=== PATIENT | female | born 1945 | race Caucasian/White ===

== ENCOUNTER 2020-09-26 15:01 | Observation (INO) | payer MEDICARE, BC ==
[2020-09-26] MEDS ORDERED: Hydrocortisone Sod Succ/PF 100 mg/2 ml Vial ONE (15:45)
[2020-09-26] MEDS ORDERED: Aspirin 325 MG TAB ONE (15:46)
[2020-09-26 16:19] LABS: #Basophils 0.1 10x3/uL (0.0-0.2); #Eosinphils 0.3 10x3/uL (0.0-0.5); #Monocytes 1.2 10x3/uL (0.0-1.1); #Neutrophils 7.5 10x3/uL (1.5-8.4); %Basophils 0.8 % (0.0-2.0); %Eosinophils 2.7 % (0.0-6.0); %Lymphocytes 25.8 % (18.0-47.0); %Monocytes 9.8 % (0.0-10.0); %Neutrophils 60.3 % (40.0-75.0); Hemoglobin 16.4 g/dL (12.0-15.5); Mean Corpuscular HGB CONC 34.1 g/dL (32.0-36.0); Mean Corpuscular Hemoglobin 29.4 pg (27.0-33.0); Mean Corpuscular Volume 86.4 fl (81.6-98.3); Mean Platelet Volume 10.2 fl (7.4-10.4); Platelet Count 373 10x3/uL (150-450); RBC Distribution Width 11.9 % (11.5-14.5); Red Blood Cell (RBC) Count 5.57 10x6/uL (3.90-5.03); White Blood Cell (WBC) Count 12.4 10x3/uL (3.5-10.5)
[2020-09-26 16:47] LABS: ALT (SGPT) 13 U/L (8-55); AST (SGOT) 16 U/L (5-34); Albumin 3.8 g/dL (3.4-4.8); Alkaline Phosphatase 60 U/L (40-110); Anion Gap 16 mmol/L (10-20); BUN (Urea Nitrogen) 18 mg/dL (9.8-20.1); Bilirubin, Total 0.4 mg/dL (0.2-1.2); CK (CPK) 29 U/L (29-168); Calc. Creatinine Clearance 0 mL/min (70-130); Calcium 10.4 mg/dL (7.8-10.44); Carbon Dioxide 21 mmol/L (23-31); Globulin 2.8 g/dL (2.4-3.5); Glucose 112 mg/dL (83-110); Protein, Total 6.6 g/dL (5.8-8.1)
[2020-09-26 17:01] LABS: Chloride 104 mmol/L (98-107); Potassium 4.8 mmol/L (3.5-5.1); Sodium 136 mmol/L (136-145)
[2020-09-26 17:30] LABS: Bilirubin Neg (Negative); Blood, Urine Negative (Negative); Clarity Clear (Clear); Glucose, Urine (Dipstick) Normal (Negative); Ketone, Urine Negative (Negative); Leukocyte Negative (Negative); Nitrite Negative (Negative); Protein, Urine (Dipstick) Negative (Neg-Trace); Specific Gravity, Urine 1.015 (1.002-1.036); Urobilinogen Normal mg/dL (Less than 2)
[2020-09-26] MEDS ORDERED: Diltiazem 125 MG/25 ML ONE (18:54)
[2020-09-26] MEDS ORDERED: Enoxaparin Sodium 60 MG/0.6 ML SYRINGE ONE (18:54)
[2020-09-26] MEDS ORDERED: Acetaminophen 325 MG TAB PO PRN (20:02)
[2020-09-26] MEDS ORDERED: Calcium Carbonate 500 MG ChewTAB PO PRN (20:02)
[2020-09-26] MEDS ORDERED: Ondansetron PF 4 MG/2 ML Vial IVP PRN (20:02)
[2020-09-26] MEDS ORDERED: Zolpidem Tartrate 5 MG TAB PO PRN (20:02)
[2020-09-26] MEDS ORDERED: Guaifenesin DM 100-10/5 ML UDCUP PO PRN (20:02)
[2020-09-26] MEDS ORDERED: Lactated Ringer's 1,000 ML IV SCH (20:15)
[2020-09-26] MEDS: Metoprolol Tartrate 25 MG TAB PO SCH (21:58)
[2020-09-26] MEDS: Famotidine 20 MG TAB PO SCH (21:58)
[2020-09-26 23:05] VITALS: BMI 24.5
[2020-09-27] MEDS: Hydrocortisone Sod Succ/PF 100 mg/2 ml Vial IVP SCH ×2 (01:18→08:27)
[2020-09-27 06:34] LABS: #Monocytes 0.3 10x3/uL (0.0-1.1); #Neutrophils 12.1 10x3/uL (1.5-8.4); %Basophils 0.2 % (0.0-2.0); %Eosinophils 0.1 % (0.0-6.0); %Lymphocytes 14.2 % (18.0-47.0); %Monocytes 2.1 % (0.0-10.0); %Neutrophils 82.9 % (40.0-75.0); Hemoglobin 13.9 g/dL (12.0-15.5); Mean Corpuscular HGB CONC 33.2 g/dL (32.0-36.0); Mean Corpuscular Hemoglobin 29.4 pg (27.0-33.0); Mean Corpuscular Volume 88.8 fl (81.6-98.3); Mean Platelet Volume 10.3 fl (7.4-10.4); Platelet Count 296 10x3/uL (150-450); RBC Distribution Width 12.1 % (11.5-14.5); Red Blood Cell (RBC) Count 4.72 10x6/uL (3.90-5.03); White Blood Cell (WBC) Count 14.6 10x3/uL (3.5-10.5)
[2020-09-27 06:43] LABS: Anion Gap 15 mmol/L (10-20); BUN (Urea Nitrogen) 14 mg/dL (9.8-20.1); Calc. Creatinine Clearance 62 mL/min (70-130); Calcium 9.2 mg/dL (7.8-10.44); Carbon Dioxide 19 mmol/L (23-31); Chloride 111 mmol/L (98-107); Glucose 200 mg/dL (83-110); Potassium 4.1 mmol/L (3.5-5.1); Sodium 141 mmol/L (136-145)
[2020-09-27 08:27] VITALS: BP 108/60; TEMP 97.4
[2020-09-27] MEDS: Metoprolol Tartrate 25 MG TAB PO SCH (08:27)
[2020-09-27] MEDS: Famotidine 20 MG TAB PO SCH (08:27)
[2020-09-27] MEDS ORDERED: Aspirin 81 mg Enteric Coated Tablet PO SCH (09:00)
[2020-09-27] MEDS ORDERED: Enoxaparin Sodium 40 MG/0.4 ML SYRINGE SC SCH (09:00)
[2020-09-27 09:22] LABS: Free T4 (Free Thyroxine) 1.01 ng/dL (0.70-1.48); Thyroid Stimulating Hormone 0.0324 uIU/mL (0.35-4.94)
== END 2020-09-27 10:50 | disposition home or self-care (01) ==
LOC: CSHERS 15:01 → CSHTELE 20:55 → INTOOBSV 20:55
PROVIDERS: ADMIT Student in an Organized Health Care Education/Training Program; ATTEND Hospitalist
DX: E27.2 Addisonian crisis (principal); E86.0 Dehydration; I48.91 Unspecified atrial fibrillation; E03.9 Hypothyroidism, unspecified; N18.2 Chronic kidney disease, stage 2 (mild); D72.829 Elevated white blood cell count, unspecified
CPT/HCPCS: 71045; 80048; 80053; 81003; 82550; 83605; 84439; 84443; 84481; 84484; 85025; 93005; 93010; 96374; 96375; 96376; G0378; J1650; J1720; J7120

== ENCOUNTER 2021-06-04 19:59 | Inpatient (IN) | payer MEDICARE, BC ==
[2021-06-04] MEDS ORDERED: Hydrocortisone Sod Succ/PF 100 mg/2 ml Vial ONE (20:07)
[2021-06-04] MEDS ORDERED: Diltiazem 125 MG/25 ML ONE (20:07)
[2021-06-04 21:05] LABS: #Basophils 0.1 10x3/uL (0.0-0.2); #Eosinphils 0.3 10x3/uL (0.0-0.5); #Monocytes 1.2 10x3/uL (0.0-1.1); #Neutrophils 9.6 10x3/uL (1.5-8.4); %Basophils 0.6 % (0.0-2.0); %Eosinophils 2.1 % (0.0-6.0); %Monocytes 8.3 % (0.0-10.0); %Neutrophils 66.4 % (40.0-75.0); Hemoglobin 14.9 g/dL (12.0-15.5); Mean Corpuscular HGB CONC 34.3 g/dL (32.0-36.0); Mean Corpuscular Hemoglobin 29.7 pg (27.0-33.0); Mean Corpuscular Volume 86.6 fl (81.6-98.3); Mean Platelet Volume 10.1 fl (7.4-10.4); Platelet Count 300 10x3/uL (150-450); RBC Distribution Width 12.8 % (11.5-14.5); Red Blood Cell (RBC) Count 5.01 10x6/uL (3.90-5.03); White Blood Cell (WBC) Count 14.5 10x3/uL (3.5-10.5)
[2021-06-04 21:21] LABS: Digoxin 0.16 ng/mL (0.8-2.0)
[2021-06-04 21:21] LABS: ALT (SGPT) 63 U/L (8-55); AST (SGOT) 63 U/L (5-34); Albumin 3.5 g/dL (3.4-4.8); Alkaline Phosphatase 41 U/L (40-110); Anion Gap 13 mmol/L (10-20); BUN (Urea Nitrogen) 17 mg/dL (9.8-20.1); Bilirubin, Total 0.7 mg/dL (0.2-1.2); Calc. Creatinine Clearance 0 mL/min (70-130); Calcium 8.4 mg/dL (7.8-10.44); Carbon Dioxide 20 mmol/L (23-31); Chloride 106 mmol/L (98-107); Globulin 2.6 g/dL (2.4-3.5); Glucose 131 mg/dL (83-110); Potassium 3.5 mmol/L (3.5-5.1); Protein, Total 6.1 g/dL (5.8-8.1); Sodium 135 mmol/L (136-145)
[2021-06-04] MEDS ORDERED: Metoprolol Tartrate 5 MG/5 ML VIAL ONE (21:26)
[2021-06-04] MEDS ORDERED: Acetaminophen 325 MG TAB PO PRN (22:14)
[2021-06-04] MEDS ORDERED: Senokot S 8.6-50 MG TAB PO PRN (22:14)
[2021-06-04] MEDS ORDERED: Zolpidem Tartrate 5 MG TAB PO PRN (22:14)
[2021-06-04] MEDS ORDERED: Ondansetron PF 4 MG/2 ML Vial IVP PRN (22:14)
[2021-06-04] MEDS ORDERED: Calcium Carbonate 500 MG ChewTAB PO PRN (22:14)
[2021-06-04] MEDS ORDERED: Guaifenesin DM 100-10/5 ML UDCUP PO PRN (22:14)
[2021-06-04] MEDS ORDERED: Digoxin 0.125 MG TAB PO SCH (22:30)
[2021-06-04] MEDS ORDERED: Acetaminophen 325 MG TAB ONE (22:37)
[2021-06-04] MEDS ORDERED: Digoxin 0.5 MG/2 ML AMP ONE (22:50)
[2021-06-05] MEDS ORDERED: Enoxaparin Sodium 60 MG/0.6 ML SYRINGE SC SCH (00:01)
[2021-06-05] MEDS ORDERED: Potassium Chloride 20 MEQ TAB PO SCH (00:01)
[2021-06-05] MEDS ORDERED: Digoxin 0.5 MG/2 ML AMP SLOW IVP SCH (00:01)
[2021-06-05 00:05] VITALS: BMI 25.4
[2021-06-05] MEDS ORDERED: Sodium Chloride 0.9% 1,000 ML IV SCH (01:00)
[2021-06-05] MEDS ORDERED: Diltiazem 125 MG, Admixture Fee 1 EACH in Sodium Chloride 0.9% 100 ML IVPB SCH (01:00)
[2021-06-05 02:26] LABS: SARS-CoV-2 NAA Rapid Test Not Detected (NotDetected)
[2021-06-05 04:43] LABS: ALT (SGPT) 72 U/L (8-55); AST (SGOT) 53 U/L (5-34); Albumin 3.5 g/dL (3.4-4.8); Alkaline Phosphatase 45 U/L (40-110); Anion Gap 14 mmol/L (10-20); BUN (Urea Nitrogen) 15 mg/dL (9.8-20.1); Bilirubin, Direct 0.3 mg/dL (0.1-0.3); Bilirubin, Total 0.7 mg/dL (0.2-1.2); Calc. Creatinine Clearance 65 mL/min (70-130); Calcium 8.3 mg/dL (7.8-10.44); Carbon Dioxide 19 mmol/L (23-31); Chloride 109 mmol/L (98-107); Glucose 159 mg/dL (83-110); Magnesium 1.8 mg/dL (1.6-2.6); Potassium 4.5 mmol/L (3.5-5.1); Sodium 137 mmol/L (136-145)
[2021-06-05 04:46] LABS: #Monocytes 0.5 10x3/uL (0.0-1.1); #Neutrophils 8.9 10x3/uL (1.5-8.4); %Basophils 0.2 % (0.0-2.0); %Eosinophils 0.1 % (0.0-6.0); %Lymphocytes 20.7 % (18.0-47.0); %Monocytes 3.9 % (0.0-10.0); %Neutrophils 74.5 % (40.0-75.0); Hemoglobin 14.4 g/dL (12.0-15.5); Mean Corpuscular HGB CONC 33.9 g/dL (32.0-36.0); Mean Corpuscular Hemoglobin 29.9 pg (27.0-33.0); Mean Corpuscular Volume 88.4 fl (81.6-98.3); Mean Platelet Volume 10.7 fl (7.4-10.4); Platelet Count 285 10x3/uL (150-450); RBC Distribution Width 12.4 % (11.5-14.5); Red Blood Cell (RBC) Count 4.81 10x6/uL (3.90-5.03); White Blood Cell (WBC) Count 11.9 10x3/uL (3.5-10.5)
[2021-06-05 04:50] LABS: Free T4 (Free Thyroxine) 1.67 ng/dL (0.70-1.48)
[2021-06-05] MEDS ORDERED: Levothyroxine Sodium 100 MCG TAB PO SCH (06:00)
[2021-06-05] MEDS ORDERED: Levothyroxine Sodium 112 MCG TAB PO SCH (06:00)
[2021-06-05] MEDS ORDERED: Metoprolol Tartrate 25 MG TAB PO SCH (09:00)
[2021-06-05] MEDS ORDERED: Aspirin 81 mg Enteric Coated Tablet PO SCH (09:00)
[2021-06-05] MEDS ORDERED: Digoxin 0.125 MG TAB PO SCH (09:00)
[2021-06-05] MEDS ORDERED: Enoxaparin Sodium 40 MG/0.4 ML SYRINGE SC SCH ×2 (09:00→21:00)
[2021-06-05] MEDS ORDERED: Hydrocortisone Sod Succ/PF 100 mg/2 ml Vial IVP SCH (09:00)
[2021-06-05] MEDS ORDERED: Famotidine 20 MG TAB PO SCH (09:00)
[2021-06-05 12:32] LABS: Hemoglobin A1c 5.7 % (4.0-6.0)
[2021-06-05 16:03] VITALS: BP 131/58; TEMP 98.1
[2021-06-05] MEDS ORDERED: Amitriptyline HCl 25 MG TAB PO SCH (21:00)
[2021-06-06] MEDS ORDERED: Levothyroxine Sodium 75 MCG TAB PO SCH (06:00)
== END 2021-06-05 16:55 | disposition home or self-care (01) | DRG 309 ==
LOC: CSHERS 19:59 → UNDOADMOB 22:14 → CSHTELE 22:14 → INTOOBSV 06-05 00:02 → UNDOADMOB 06-05 00:02 → OBSVTOIN 06-05 00:02 → UNDODISIN 06-05 16:55
PROVIDERS: ADMIT Student in an Organized Health Care Education/Training Program; ATTEND Family Medicine
DX: I48.0 Paroxysmal atrial fibrillation (principal); E27.2 Addisonian crisis; E03.9 Hypothyroidism, unspecified; N18.2 Chronic kidney disease, stage 2 (mild); D72.829 Elevated white blood cell count, unspecified; G47.00 Insomnia, unspecified; Z20.822 Contact with and (suspected) exposure to COVID-19; Z88.0 Allergy status to penicillin; Z79.899 Other long term (current) drug therapy; Z90.49 Acquired absence of other specified parts of digestive tract; Z90.710 Acquired absence of both cervix and uterus
CPT/HCPCS: 36415; 71045; 71275; 80053; 80076; 80162; 83036; 83605; 83735; 83880; 84439; 84443; 84481; 84484; 85025; 85379; 87040; 93005; 93306; 96365; 96366; 96375; 96376; J1160; J1650; J1720; J3490; J7050

== ENCOUNTER 2021-10-14 16:16 | Observation (INO) | payer MEDICARE, BC ==
[2021-10-14 17:30] LABS: Hemoglobin 18.1 g/dL (12.0-15.5); Mean Corpuscular HGB CONC 34.4 g/dL (32.0-36.0); Mean Corpuscular Hemoglobin 29.8 pg (27.0-33.0); Mean Corpuscular Volume 86.7 fl (81.6-98.3); Platelet Count 334 10x3/uL (150-450); RBC Distribution Width 12.7 % (11.5-14.5); Red Blood Cell (RBC) Count 6.07 10x6/uL (3.90-5.03)
[2021-10-14] MEDS ORDERED: Ondansetron PF 4 MG/2 ML Vial ONE (17:35)
[2021-10-14] MEDS ORDERED: Hydrocortisone Sod Succ/PF 100 mg/2 ml Vial ONE (17:35)
[2021-10-14 17:36] LABS: ALT (SGPT) 18 U/L (8-55); AST (SGOT) 19 U/L (5-34); Albumin 4.4 g/dL (3.4-4.8); Alkaline Phosphatase 54 U/L (40-110); Anion Gap 18 mmol/L (10-20); BUN (Urea Nitrogen) 23 mg/dL (9.8-20.1); Bilirubin, Total 0.4 mg/dL (0.2-1.2); CK (CPK) 36 U/L (29-168); Calc. Creatinine Clearance 0 mL/min (70-130); Calcium 10.5 mg/dL (7.8-10.44); Carbon Dioxide 22 mmol/L (23-31); Chloride 98 mmol/L (98-107); Estimated GFR 54; Globulin 3.6 g/dL (2.4-3.5); Glucose 207 mg/dL (83-110); Lipase 30 U/L (8-78); Potassium 4.1 mmol/L (3.5-5.1); Sodium 134 mmol/L (136-145)
[2021-10-14 18:01] LABS: SARS-CoV-2 NAA Rapid Test Not Detected (NotDetected)
[2021-10-14 18:28] LABS: Bilirubin Neg (Negative); Blood, Urine 10 (Negative); Clarity Clear (Clear); Glucose, Urine (Dipstick) Normal (Negative); Ketone, Urine Negative (Negative); Leukocyte Negative (Negative); Nitrite Negative (Negative); Protein, Urine (Dipstick) Negative (Neg-Trace); Urobilinogen Normal mg/dL (Less than 2)
[2021-10-14 18:34] LABS: Bacteria/HPF 2+ HPF (None Seen); Mucous/LPF 1+ LPF (<2+); RBC/HPF 0-3 HPF (0-3); WBC/HPF 0-3 HPF (0-3)
[2021-10-14] MEDS ORDERED: cefTRIAXone\\ROCEPHIN 1 GM VIAL ONE (19:22)
[2021-10-14 19:23] LABS: Eosinophils 6 % (0-10); Monocytes 5 % (0-10)
[2021-10-14 19:24] LABS: Lymphocytes 30 % (21-51); Metamyelocyte 1 % (0-0); Neutrophil 50 % (42-75); Reactive Lymphocytes 3 % (0-10)
[2021-10-14 19:27] LABS: Band 4 % (5-11); Large Platelets SLIGHT; Platelet Morphology Comment Appears Adequate
[2021-10-14 19:28] LABS: MDiff Complete? YES
[2021-10-14 19:29] LABS: RBC Morphology Normal
[2021-10-14] MEDS ORDERED: Doxycycline 100 MG in Sodium Chloride 0.9% 100 ML IVPB SCH (19:30)
[2021-10-14] MEDS ORDERED: Guaifenesin DM 100-10/5 ML UDCUP PO PRN (19:48)
[2021-10-14] MEDS ORDERED: Senokot S 8.6-50 MG TAB PO PRN (19:48)
[2021-10-14] MEDS ORDERED: Acetaminophen 325 MG TAB PO PRN (19:48)
[2021-10-14] MEDS ORDERED: Calcium Carbonate 500 MG ChewTAB PO PRN (19:48)
[2021-10-14] MEDS ORDERED: Ondansetron PF 4 MG/2 ML Vial IVP PRN (19:48)
[2021-10-14 20:29] LABS: Lactic Acid 2.1 mmol/L (0.5-2.2)
[2021-10-14 20:38] VITALS: BMI 24.7
[2021-10-14] MEDS ORDERED: Benzonatate 100 MG CAP PO SCH (21:00)
[2021-10-14] MEDS ORDERED: Amitriptyline HCl 25 MG TAB PO SCH (21:00)
[2021-10-14] MEDS ORDERED: Metoprolol Tartrate 25 MG TAB PO SCH ×2 (21:00→21:30)
[2021-10-14] MEDS ORDERED: Famotidine/PF 20 mg/2ml Vial SLOW IVP SCH (21:00)
[2021-10-14] MEDS: Sodium Chloride 0.9% 1,000 ML IV SCH (21:31)
[2021-10-14] MEDS ORDERED: Zolpidem Tartrate 5 MG TAB PO PRN (22:29)
[2021-10-14] MEDS: Hydrocortisone Sod Succ/PF 100 mg/2 ml Vial IVP SCH (23:12)
[2021-10-15] MEDS: Sodium Chloride 0.9% 1,000 ML IV SCH (00:17)
[2021-10-15 05:17] LABS: #Monocytes 0.9 10x3/uL (0.0-1.1); #Neutrophils 8.6 10x3/uL (1.5-8.4); %Basophils 0.2 % (0.0-2.0); %Eosinophils 0.1 % (0.0-6.0); %Lymphocytes 21.5 % (18.0-47.0); %Monocytes 7.3 % (0.0-10.0); %Neutrophils 70.2 % (40.0-75.0); Hemoglobin 13.2 g/dL (12.0-15.5); Mean Corpuscular HGB CONC 34.1 g/dL (32.0-36.0); Mean Corpuscular Hemoglobin 29.6 pg (27.0-33.0); Mean Corpuscular Volume 86.8 fl (81.6-98.3); Mean Platelet Volume 10.2 fl (7.4-10.4); Platelet Count 265 10x3/uL (150-450); RBC Distribution Width 12.5 % (11.5-14.5); Red Blood Cell (RBC) Count 4.46 10x6/uL (3.90-5.03); White Blood Cell (WBC) Count 12.3 10x3/uL (3.5-10.5)
[2021-10-15] MEDS ORDERED: Levothyroxine Sodium 88 MCG TAB PO SCH (06:00)
[2021-10-15 06:11] LABS: Anion Gap 12 mmol/L (10-20); BUN (Urea Nitrogen) 13 mg/dL (9.8-20.1); Calc. Creatinine Clearance 67 mL/min (70-130); Calcium 8.1 mg/dL (7.8-10.44); Carbon Dioxide 19 mmol/L (23-31); Chloride 110 mmol/L (98-107); Estimated GFR 90; Glucose 104 mg/dL (83-110); Potassium 4.4 mmol/L (3.5-5.1); Sodium 137 mmol/L (136-145)
[2021-10-15] MEDS: Hydrocortisone Sod Succ/PF 100 mg/2 ml Vial IVP SCH (06:11)
[2021-10-15] MEDS ORDERED: Enoxaparin Sodium 40 MG/0.4 ML SYRINGE SC SCH (09:00)
[2021-10-15] MEDS ORDERED: Metoprolol Tartrate 25 MG TAB PO SCH (09:00)
[2021-10-15] MEDS ORDERED: Aspirin 81 mg Enteric Coated Tablet PO SCH (09:00)
[2021-10-15] MEDS ORDERED: Digoxin 0.125 MG TAB PO SCH (09:00)
[2021-10-15 11:35] VITALS: BP 116/57; TEMP 97.5
[2021-10-15 13:46] LABS: Hemoglobin A1c 5.9 % (4.0-6.0)
[2021-10-15] MEDS ORDERED: Famotidine/PF 20 mg/2ml Vial SLOW IVP SCH (21:00)
== END 2021-10-15 12:01 | disposition home or self-care (01) ==
LOC: CSHERS 16:16 → CSHTELE 20:23
PROVIDERS: ADMIT Student in an Organized Health Care Education/Training Program; ATTEND Internal Medicine
DX: E27.2 Addisonian crisis (principal); E03.9 Hypothyroidism, unspecified; E86.0 Dehydration; N18.2 Chronic kidney disease, stage 2 (mild); I48.0 Paroxysmal atrial fibrillation; Z20.822 Contact with and (suspected) exposure to COVID-19; Z79.82 Long term (current) use of aspirin; Z79.899 Other long term (current) drug therapy; Z88.0 Allergy status to penicillin; Z88.5 Allergy status to narcotic agent; R65.10 Systemic inflammatory response syndrome (SIRS) of non-infectious origin without acute organ dysfunction; R53.1 Weakness; R79.89 Other specified abnormal findings of blood chemistry
CPT/HCPCS: 71045; 80048; 82550; 83036; 83605; 83690; 84484 ×2; 85025; 87040; 87086; 87633; 87804 ×2; 93005; 96375; G0378 ×2; U0002; 36415; 80053; 81003; 81015; 84443; J0696; J1720; J2405; J3490; J7050; S0028

== ENCOUNTER 2022-09-11 03:51 | Emergency (ER) | payer MEDICARE, BC ==
[2022-09-11] MEDS ORDERED: Hydrocortisone Sod Succ/PF 100 mg/2 ml Vial ONE (04:16)
[2022-09-11 04:26] LABS: #Basophils 0.1 10x3/uL (0.0-0.2); #Eosinphils 0.3 10x3/uL (0.0-0.5); #Monocytes 1.2 10x3/uL (0.0-1.1); #Neutrophils 5.3 10x3/uL (1.5-8.4); %Basophils 1.1 % (0.0-2.0); %Eosinophils 2.3 % (0.0-6.0); %Lymphocytes 40.4 % (18.0-47.0); %Neutrophils 45.9 % (40.0-75.0); Hemoglobin 17.6 g/dL (12.0-15.5); Mean Corpuscular HGB CONC 34.6 g/dL (32.0-36.0); Mean Corpuscular Hemoglobin 30.4 pg (27.0-33.0); Mean Corpuscular Volume 88.1 fl (81.6-98.3); Mean Platelet Volume 10.5 fl (7.4-10.4); Platelet Count 331 10x3/uL (150-450); RBC Distribution Width 12.3 % (11.5-14.5); Red Blood Cell (RBC) Count 5.78 10x6/uL (3.90-5.03); White Blood Cell (WBC) Count 11.5 10x3/uL (3.5-10.5)
[2022-09-11 04:33] LABS: ALT (SGPT) 17 U/L (8-55); AST (SGOT) 24 U/L (5-34); Albumin 4.3 g/dL (3.4-4.8); Alkaline Phosphatase 48 U/L (40-110); Anion Gap 19 mmol/L (10-20); BUN (Urea Nitrogen) 19 mg/dL (9.8-20.1); Bilirubin, Total 0.3 mg/dL (0.2-1.2); Calc. Creatinine Clearance 0 mL/min (70-130); Calcium 9.7 mg/dL (7.8-10.44); Carbon Dioxide 19 mmol/L (23-31); Chloride 103 mmol/L (98-107); Estimated GFR 71; Globulin 3.3 g/dL (2.4-3.5); Glucose 127 mg/dL (83-110); Magnesium 1.6 mg/dL (1.6-2.6); Protein, Total 7.6 g/dL (5.8-8.1); Sodium 136 mmol/L (136-145)
== END 2022-09-11 05:50 | disposition home or self-care (01) ==
LOC: CSHERS 03:51
DX: E27.2 Addisonian crisis (principal); E03.9 Hypothyroidism, unspecified; I48.91 Unspecified atrial fibrillation
CPT/HCPCS: 80053; 83735; 84443; 84484; 85025; 93005; 96361; 96374; J1720

== ENCOUNTER 2023-02-04 15:16 | Inpatient (IN) | payer MEDICARE, BC ==
[2023-02-04] MEDS ORDERED: Hydrocortisone Sod Succ/PF 100 mg/2 ml Vial ONE (15:37)
[2023-02-04] MEDS ORDERED: dilTIAZem 125 MG/25 ML SDV ONE (15:56)
[2023-02-04] MEDS ORDERED: Acetaminophen 325 MG Suppository ONE (15:56)
[2023-02-04] MEDS ORDERED: dilTIAZem 25 MG/5 ML VIAL ONE (15:56)
[2023-02-04 16:08] LABS: Actual Bicarbonate (HCO3v) 23.8 mEq/L (22-28); Analyzer IN Cardio CS ER; Base Excess -0.7 mEq/L (-2 - +2); Calcium, Ionized (venous) 0.97 mmol/L (1.16-1.32); Chloride (VBG) 100 mmol/L (98-106); Hematocrit-VBG 48 % (36.0-47.0); Hemoglobin (Hb) 16.3 g/dL (11.7-16.1); Potassium (VBG) 3.07 mmol/L (3.70-5.30); Puncture Site Other Site; RapidComm Collect By CBN; Sodium 136 mmol/L (133-146); pH (venous) 7.403 (7.32-7.43)
[2023-02-04 16:38] LABS: #Basophils 0.1 10x3/uL (0.0-0.2); #Eosinphils 0.1 10x3/uL (0.0-0.5); #Monocytes 2.2 10x3/uL (0.0-1.1); %Basophils 0.5 % (0.0-2.0); %Eosinophils 0.6 % (0.0-6.0); %Lymphocytes 31.2 % (18.0-47.0); %Monocytes 12.9 % (0.0-10.0); %Neutrophils 54.1 % (40.0-75.0); Hematocrit 46.4 % (34.9-44.5); Hemoglobin 15.4 g/dL (12.0-15.5); Mean Corpuscular HGB CONC 33.2 g/dL (32.0-36.0); Mean Corpuscular Hemoglobin 30.4 pg (27.0-33.0); Mean Corpuscular Volume 91.7 fl (81.6-98.3); Mean Platelet Volume 10.8 fl (7.4-10.4); Platelet Count 251 10x3/uL (150-450); RBC Distribution Width 12.5 % (11.5-14.5); Red Blood Cell (RBC) Count 5.06 10x6/uL (3.90-5.03); White Blood Cell (WBC) Count 16.7 10x3/uL (3.5-10.5)
[2023-02-04 16:46] LABS: ALT (SGPT) 42 U/L (8-55); AST (SGOT) 62 U/L (5-34); Albumin 3.9 g/dL (3.4-4.8); Alkaline Phosphatase 48 U/L (40-110); Anion Gap 16 mmol/L (10-20); BUN (Urea Nitrogen) 13 mg/dL (9.8-20.1); Bilirubin, Total 0.5 mg/dL (0.2-1.2); Calc. Creatinine Clearance 0 mL/min (70-130); Calcium 8.7 mg/dL (7.8-10.44); Carbon Dioxide 19 mmol/L (23-31); Chloride 105 mmol/L (98-107); Estimated GFR 81; Glucose 86 mg/dL (83-110); Magnesium 1.5 mg/dL (1.6-2.6); Potassium 3.2 mmol/L (3.5-5.1); Protein, Total 6.9 g/dL (5.8-8.1); Sodium 137 mmol/L (136-145)
[2023-02-04] MEDS ORDERED: Magnesium 2 GM/50 ML BAG (IN WATER) ONE (17:08)
[2023-02-04] MEDS ORDERED: Cefepime 2 GM VIAL ONE (17:08)
[2023-02-04] MEDS ORDERED: Potassium Chloride 20 MEQ (100 mL) BAG ONE (17:09)
[2023-02-04 17:43] LABS: SARS-CoV-2 NAA Rapid Test DETECTED (NotDetected)
[2023-02-04] MEDS ORDERED: dilTIAZem 125 MG in Sodium Chloride 0.9% 100 ML IVPB SCH ×2 (19:00→21:15)
[2023-02-04 19:17] LABS: Lactic Acid 1.3 mmol/L (0.5-2.2)
[2023-02-04] MEDS ORDERED: Acetaminophen 325 MG TAB PO PRN (19:21)
[2023-02-04] MEDS ORDERED: Acetaminophen 650 MG Suppository PR PRN ×2 (19:21)
[2023-02-04] MEDS ORDERED: Bisacodyl 5 MG TAB PO PRN (19:21)
[2023-02-04] MEDS ORDERED: Ondansetron ODT 4 MG TAB PO PRN (19:21)
[2023-02-04] MEDS ORDERED: Ondansetron PF 4 MG/2 ML Vial IVP PRN (19:21)
[2023-02-04] MEDS ORDERED: Senokot S 8.6-50 MG TAB PO PRN (19:21)
[2023-02-04] MEDS ORDERED: Electrolyte Replacement Protocol 1 EACH FS SCH (19:30)
[2023-02-04] MEDS ORDERED: Ventolin HFA Inhaler 60 PUFF INHALER INH PRN (19:45)
[2023-02-04] MEDS: Sodium Chloride 0.9% 1,000 ML IV SCH (19:53)
[2023-02-04] MEDS: Hydrocortisone Sod Succ/PF 100 mg/2 ml Vial IVP SCH (20:05)
[2023-02-04] MEDS: Famotidine 20 MG TAB PO SCH (20:05)
[2023-02-04] MEDS: Famotidine/PF 20 mg/2ml Vial SLOW IVP SCH (20:05)
[2023-02-04] MEDS: Potassium Chloride 20 MEQ in Premix 1 BAG IVPB SCH ×2 (20:05→22:47)
[2023-02-04 20:06] LABS: ALT (SGPT) 42 U/L (8-55); AST (SGOT) 68 U/L (5-34); Albumin 3.9 g/dL (3.4-4.8); Alkaline Phosphatase 45 U/L (40-110); Bilirubin, Direct 0.2 mg/dL (0.1-0.3); Bilirubin, Total 0.5 mg/dL (0.2-1.2); CRP (Inflammatory) 3.05 mg/dL (= or < 0.5); Phosphorus 2.2 mg/dL (2.3-4.7); Protein, Total 6.5 g/dL (5.8-8.1)
[2023-02-04] MEDS ORDERED: REMDESIVIR 200 MG in Sodium Chloride 0.9% 250 ML 210 ML IV SCH (21:00)
[2023-02-04] MEDS: Metoprolol Tartrate 25 MG TAB PO SCH (21:56)
[2023-02-04] MEDS ORDERED: Potassium Chloride 20 MEQ in Premix 1 BAG IVPB SCH (22:00)
[2023-02-04 22:54] LABS: Magnesium 1.7 mg/dL (1.6-2.6); Phosphorus 2.7 mg/dL (2.3-4.7)
[2023-02-05 00:11] LABS: Legionella Urinary Ag Negative (Negative); Strep pneumo Urine Ag NEGATIVE (NEGATIVE)
[2023-02-05 00:30] LABS: Digoxin 0.57 ng/mL (0.8-2.0)
[2023-02-05] MEDS: Hydrocortisone Sod Succ/PF 100 mg/2 ml Vial IVP SCH ×4 (02:18→20:10)
[2023-02-05] MEDS: Sodium Chloride 0.9% 1,000 ML IV SCH (02:18)
[2023-02-05 03:36] LABS: #Basophils 0.1 10x3/uL (0.0-0.2); #Neutrophils 10.4 10x3/uL (1.5-8.4); %Basophils 0.4 % (0.0-2.0); %Eosinophils 0.1 % (0.0-6.0); %Lymphocytes 20.6 % (18.0-47.0); %Monocytes 12.9 % (0.0-10.0); %Neutrophils 65.6 % (40.0-75.0); Hematocrit 35.3 % (34.9-44.5); Hemoglobin 11.7 g/dL (12.0-15.5); Mean Corpuscular HGB CONC 33.1 g/dL (32.0-36.0); Mean Corpuscular Hemoglobin 29.8 pg (27.0-33.0); Mean Corpuscular Volume 89.8 fl (81.6-98.3); Mean Platelet Volume 11.1 fl (7.4-10.4); Platelet Count 208 10x3/uL (150-450); RBC Distribution Width 12.9 % (11.5-14.5); Red Blood Cell (RBC) Count 3.93 10x6/uL (3.90-5.03); White Blood Cell (WBC) Count 15.9 10x3/uL (3.5-10.5)
[2023-02-05 03:49] LABS: ALT (SGPT) 32 U/L (8-55); AST (SGOT) 42 U/L (5-34); Albumin 3.1 g/dL (3.4-4.8); Alkaline Phosphatase 33 U/L (40-110); Anion Gap 13 mmol/L (10-20); BUN (Urea Nitrogen) 12 mg/dL (9.8-20.1); Bilirubin, Direct 0.1 mg/dL (0.1-0.3); Bilirubin, Total 0.3 mg/dL (0.2-1.2); Calc. Creatinine Clearance 68 mL/min (70-130); Calcium 7.4 mg/dL (7.8-10.44); Carbon Dioxide 20 mmol/L (23-31); Chloride 107 mmol/L (98-107); Estimated GFR 83; Globulin 2.1 g/dL (2.4-3.5); Glucose 116 mg/dL (83-110); Potassium 3.8 mmol/L (3.5-5.1); Protein, Total 5.2 g/dL (5.8-8.1); Sodium 136 mmol/L (136-145)
[2023-02-05] MEDS: Cefepime 1 GM in Sodium Chloride 0.9% 100 ML IVPB SCH ×2 (04:05→17:01)
[2023-02-05 04:09] LABS: Ferritin 411.7 ng/mL (10-291); Free T4 (Free Thyroxine) 1.3 ng/dL (0.70-1.48)
[2023-02-05] MEDS: Acetaminophen 325 MG TAB PO PRN (07:25)
[2023-02-05] MEDS: Digoxin 0.125 MG TAB PO SCH (07:26)
[2023-02-05] MEDS: Metoprolol Tartrate 25 MG TAB PO SCH ×2 (07:26→20:10)
[2023-02-05] MEDS ORDERED: Magnesium 2 GM/50 ML(in water) 2 GM in Premix 1 BAG IVPB SCH (08:00)
[2023-02-05] MEDS ORDERED: Magnesium Sulfate 4 GM in Sodium Chloride 0.9% 250 ML 250 ML IVPB SCH (08:15)
[2023-02-05] MEDS ORDERED: Digoxin 0.5 MG/2 ML AMP SLOW IVP SCH (08:15)
[2023-02-05] MEDS: Magnesium 2 GM/50 ML(in water) 2 GM in Premix 1 BAG IVPB SCH ×2 (08:31→09:20)
[2023-02-05] MEDS: Famotidine/PF 20 mg/2ml Vial SLOW IVP SCH ×2 (08:53→20:10)
[2023-02-05] MEDS: Famotidine 20 MG TAB PO SCH ×2 (08:53→20:10)
[2023-02-05] MEDS: Zinc Sulfate 220 MG CAP PO SCH (08:53)
[2023-02-05] MEDS: Ascorbic Acid 500 mg Chewable Tablet PO SCH (08:53)
[2023-02-05] MEDS ORDERED: Enoxaparin 40 MG (0.4 mL) SYRINGE SC SCH (09:00)
[2023-02-05] MEDS ORDERED: Dexamethasone 10 MG/ML VIAL SLOW IVP SCH (09:00)
[2023-02-05] MEDS: Apixaban 5 MG TAB PO SCH ×2 (09:20→20:10)
[2023-02-05] MEDS ORDERED: Amiodarone 450 MG in Dextrose 5% in Water 250 ML IVPB SCH (09:45)
[2023-02-05] MEDS ORDERED: Amiodarone In Dextrose 100 ML IVPB SCH (10:00)
[2023-02-05] MEDS: Amiodarone In Dextrose 200 ML IVPB SCH ×2 (10:17→15:15)
[2023-02-05] MEDS: Cholecalciferol (Vitamin D3) 400 UNITS TAB PO SCH (11:03)
[2023-02-05] MEDS: REMDESIVIR 100 MG in Sodium Chloride 0.9% 250 ML 230 ML IV SCH (20:10)
[2023-02-06] MEDS: Amiodarone In Dextrose 200 ML IVPB SCH (01:30)
[2023-02-06] MEDS: Hydrocortisone Sod Succ/PF 100 mg/2 ml Vial IVP SCH ×4 (03:14→20:27)
[2023-02-06 04:00] LABS: ALT (SGPT) 49 U/L (8-55); AST (SGOT) 67 U/L (5-34); Albumin 3.5 g/dL (3.4-4.8); Alkaline Phosphatase 38 U/L (40-110); Anion Gap 16 mmol/L (10-20); BUN (Urea Nitrogen) 11 mg/dL (9.8-20.1); Bilirubin, Direct 0.1 mg/dL (0.1-0.3); Bilirubin, Total 0.3 mg/dL (0.2-1.2); Calc. Creatinine Clearance 72 mL/min (70-130); Calcium 7.7 mg/dL (7.8-10.44); Carbon Dioxide 18 mmol/L (23-31); Chloride 110 mmol/L (98-107); Estimated GFR 89; Globulin 2.7 g/dL (2.4-3.5); Glucose 135 mg/dL (83-110); Magnesium 2.5 mg/dL (1.6-2.6); Potassium 3.5 mmol/L (3.5-5.1); Protein, Total 6.2 g/dL (5.8-8.1); Sodium 140 mmol/L (136-145)
[2023-02-06] MEDS: Cefepime 1 GM in Sodium Chloride 0.9% 100 ML IVPB SCH ×2 (04:02→16:39)
[2023-02-06] MEDS: Ascorbic Acid 500 mg Chewable Tablet PO SCH (07:59)
[2023-02-06] MEDS ORDERED: Potassium Chloride 20 MEQ TAB PO SCH (08:00)
[2023-02-06] MEDS: Metoprolol Tartrate 25 MG TAB PO SCH ×2 (08:01→20:28)
[2023-02-06] MEDS: Digoxin 0.125 MG TAB PO SCH (08:01)
[2023-02-06] MEDS: Apixaban 5 MG TAB PO SCH ×2 (08:01→20:28)
[2023-02-06] MEDS: Famotidine 20 MG TAB PO SCH ×2 (08:01→20:28)
[2023-02-06] MEDS: Cholecalciferol (Vitamin D3) 400 UNITS TAB PO SCH (08:02)
[2023-02-06] MEDS: Zinc Sulfate 220 MG CAP PO SCH (08:02)
[2023-02-06] MEDS: Famotidine/PF 20 mg/2ml Vial SLOW IVP SCH ×2 (09:00→20:26)
[2023-02-06] MEDS: Acetaminophen 325 MG TAB PO PRN ×2 (16:39→20:40)
[2023-02-06] MEDS: REMDESIVIR 100 MG in Sodium Chloride 0.9% 250 ML 230 ML IV SCH (20:26)
[2023-02-07] MEDS: Benzonatate 100 MG CAP PO PRN ×2 (01:03→10:27)
[2023-02-07] MEDS: Hydrocortisone Sod Succ/PF 100 mg/2 ml Vial IVP SCH ×3 (02:33→20:50)
[2023-02-07] MEDS: Acetaminophen 325 MG TAB PO PRN ×3 (02:33→18:26)
[2023-02-07] MEDS: Cefepime 1 GM in Sodium Chloride 0.9% 100 ML IVPB SCH (04:00)
[2023-02-07 04:07] LABS: ALT (SGPT) 73 U/L (8-55); AST (SGOT) 81 U/L (5-34); Albumin 3.3 g/dL (3.4-4.8); Alkaline Phosphatase 42 U/L (40-110); Anion Gap 13 mmol/L (10-20); BUN (Urea Nitrogen) 14 mg/dL (9.8-20.1); Bilirubin, Direct 0.2 mg/dL (0.1-0.3); Bilirubin, Total 0.5 mg/dL (0.2-1.2); Calc. Creatinine Clearance 76 mL/min (70-130); Calcium 8.1 mg/dL (7.8-10.44); Carbon Dioxide 20 mmol/L (23-31); Chloride 113 mmol/L (98-107); Estimated GFR 90; Globulin 2.3 g/dL (2.4-3.5); Glucose 166 mg/dL (83-110); Potassium 3.9 mmol/L (3.5-5.1); Protein, Total 5.6 g/dL (5.8-8.1); Sodium 142 mmol/L (136-145)
[2023-02-07] MEDS: Ascorbic Acid 500 mg Chewable Tablet PO SCH (08:23)
[2023-02-07] MEDS: Digoxin 0.125 MG TAB PO SCH (08:23)
[2023-02-07] MEDS: Famotidine 20 MG TAB PO SCH ×2 (08:23→20:12)
[2023-02-07] MEDS: Apixaban 5 MG TAB PO SCH ×2 (08:23→20:11)
[2023-02-07] MEDS: Amiodarone 200 MG TAB PO SCH (08:24)
[2023-02-07] MEDS: Metoprolol Tartrate 25 MG TAB PO SCH ×2 (08:24→20:11)
[2023-02-07] MEDS: Zinc Sulfate 220 MG CAP PO SCH (08:24)
[2023-02-07] MEDS: Cholecalciferol (Vitamin D3) 400 UNITS TAB PO SCH (08:32)
[2023-02-07] MEDS: Famotidine/PF 20 mg/2ml Vial SLOW IVP SCH ×2 (12:45→20:50)
[2023-02-07] MEDS ORDERED: Loperamide HCl 2 MG CAP PO PRN (13:39)
[2023-02-07] MEDS ORDERED: Losartan 25 MG TAB PO SCH (13:45)
[2023-02-07] MEDS ORDERED: Amlodipine 10 MG TAB PO SCH (14:15)
[2023-02-07] MEDS ORDERED: Metoprolol Tartrate 5 MG (5 mL) VIAL IVP PRN (20:46)
[2023-02-07] MEDS: REMDESIVIR 100 MG in Sodium Chloride 0.9% 250 ML 230 ML IV SCH (20:52)
[2023-02-08] MEDS ORDERED: dilTIAZem 125 MG in Sodium Chloride 0.9% 100 ML IVPB SCH (01:00)
[2023-02-08 06:56] LABS: #Monocytes 1.1 10x3/uL (0.0-1.1); #Neutrophils 10.1 10x3/uL (1.5-8.4); %Basophils 0.2 % (0.0-2.0); %Eosinophils 0.1 % (0.0-6.0); %Lymphocytes 18.3 % (18.0-47.0); %Monocytes 8.1 % (0.0-10.0); %Neutrophils 72.4 % (40.0-75.0); Hematocrit 35.2 % (34.9-44.5); Hemoglobin 11.9 g/dL (12.0-15.5); Mean Corpuscular HGB CONC 33.8 g/dL (32.0-36.0); Mean Corpuscular Volume 88.7 fl (81.6-98.3); Platelet Count 225 10x3/uL (150-450); RBC Distribution Width 13.3 % (11.5-14.5); Red Blood Cell (RBC) Count 3.97 10x6/uL (3.90-5.03)
[2023-02-08 07:07] LABS: ALT (SGPT) 59 U/L (8-55); AST (SGOT) 38 U/L (5-34); Alkaline Phosphatase 40 U/L (40-110); Anion Gap 11 mmol/L (10-20); BUN (Urea Nitrogen) 10 mg/dL (9.8-20.1); Bilirubin, Direct 0.3 mg/dL (0.1-0.3); Bilirubin, Total 0.7 mg/dL (0.2-1.2); Calc. Creatinine Clearance 94 mL/min (70-130); Carbon Dioxide 25 mmol/L (23-31); Chloride 108 mmol/L (98-107); Estimated GFR 94; Globulin 2.3 g/dL (2.4-3.5); Glucose 110 mg/dL (83-110); Potassium 2.9 mmol/L (3.5-5.1); Protein, Total 5.3 g/dL (5.8-8.1); Sodium 141 mmol/L (136-145)
[2023-02-08 08:21] LABS: Magnesium 1.8 mg/dL (1.6-2.6)
[2023-02-08] MEDS ORDERED: Amlodipine 10 MG TAB PO SCH (09:00)
[2023-02-08] MEDS: Saccharomyces boulardii 250 MG CAP PO SCH (09:40)
[2023-02-08] MEDS: Cholecalciferol (Vitamin D3) 400 UNITS TAB PO SCH (09:40)
[2023-02-08] MEDS: Ascorbic Acid 500 mg Chewable Tablet PO SCH (09:41)
[2023-02-08] MEDS: Potassium Chloride 20 MEQ TAB PO SCH ×3 (09:41→18:02)
[2023-02-08] MEDS: Losartan 25 MG TAB PO SCH (09:41)
[2023-02-08] MEDS: Amiodarone 200 MG TAB PO SCH ×2 (09:41→21:15)
[2023-02-08] MEDS: Metoprolol Tartrate 25 MG TAB PO SCH (09:41)
[2023-02-08] MEDS: Apixaban 5 MG TAB PO SCH ×2 (09:41→21:15)
[2023-02-08] MEDS: Famotidine 20 MG TAB PO SCH ×2 (09:42→21:15)
[2023-02-08] MEDS: Famotidine/PF 20 mg/2ml Vial SLOW IVP SCH (09:42)
[2023-02-08] MEDS: Hydrocortisone Sod Succ/PF 100 mg/2 ml Vial IVP SCH (09:47)
[2023-02-08] MEDS: Benzonatate 100 MG CAP PO PRN ×3 (09:47→21:15)
[2023-02-08] MEDS: Zinc Sulfate 220 MG CAP PO SCH (09:48)
[2023-02-08] MEDS ORDERED: Magnesium 2 GM/50 ML BAG (IN WATER) ONE (11:26)
[2023-02-08] MEDS ORDERED: Metoprolol Tartrate 25 MG TAB PO SCH (12:00)
[2023-02-08] MEDS ORDERED: Magnesium 2 GM/50 ML(in water) 2 GM in Premix 1 BAG IVPB SCH (12:00)
[2023-02-08] MEDS ORDERED: Digoxin 0.125 MG TAB PO SCH (14:45)
[2023-02-08 14:47] LABS: Potassium 3.2 mmol/L (3.5-5.1)
[2023-02-08] MEDS ORDERED: Famotidine/PF 20 mg/2ml Vial SLOW IVP PRN (16:15)
[2023-02-08] MEDS: Acetaminophen 325 MG TAB PO PRN (18:02)
[2023-02-08] MEDS: Metoprolol Tartrate 50 MG TAB PO SCH (21:15)
[2023-02-08] MEDS: REMDESIVIR 100 MG in Sodium Chloride 0.9% 250 ML 230 ML IV SCH (21:16)
[2023-02-09] MEDS: Benzonatate 100 MG CAP PO PRN ×3 (02:15→19:00)
[2023-02-09 05:00] LABS: #Basophils 0.1 10x3/uL (0.0-0.2); #Eosinphils 0.1 10x3/uL (0.0-0.5); #Monocytes 1.1 10x3/uL (0.0-1.1); #Neutrophils 6.6 10x3/uL (1.5-8.4); %Basophils 0.4 % (0.0-2.0); %Eosinophils 0.9 % (0.0-6.0); %Lymphocytes 31.4 % (18.0-47.0); %Monocytes 9.1 % (0.0-10.0); %Neutrophils 56.5 % (40.0-75.0); Hematocrit 35.8 % (34.9-44.5); Hemoglobin 12.3 g/dL (12.0-15.5); Mean Corpuscular HGB CONC 34.4 g/dL (32.0-36.0); Mean Corpuscular Hemoglobin 31.1 pg (27.0-33.0); Mean Corpuscular Volume 90.4 fl (81.6-98.3); Mean Platelet Volume 10.8 fl (7.4-10.4); Platelet Count 253 10x3/uL (150-450); RBC Distribution Width 13.1 % (11.5-14.5); Red Blood Cell (RBC) Count 3.96 10x6/uL (3.90-5.03); White Blood Cell (WBC) Count 11.6 10x3/uL (3.5-10.5)
[2023-02-09 05:26] LABS: ALT (SGPT) 50 U/L (8-55); AST (SGOT) 30 U/L (5-34); Albumin 2.9 g/dL (3.4-4.8); Alkaline Phosphatase 39 U/L (40-110); Anion Gap 11 mmol/L (10-20); BUN (Urea Nitrogen) 17 mg/dL (9.8-20.1); Bilirubin, Total 0.5 mg/dL (0.2-1.2); Calc. Creatinine Clearance 83 mL/min (70-130); Calcium 7.9 mg/dL (7.8-10.44); Carbon Dioxide 24 mmol/L (23-31); Chloride 111 mmol/L (98-107); Estimated GFR 91; Globulin 2.2 g/dL (2.4-3.5); Glucose 104 mg/dL (83-110); Magnesium 2.1 mg/dL (1.6-2.6); Potassium 3.5 mmol/L (3.5-5.1); Protein, Total 5.1 g/dL (5.8-8.1); Sodium 142 mmol/L (136-145)
[2023-02-09] MEDS ORDERED: Potassium Chloride 20 MEQ TAB PO SCH (08:00)
[2023-02-09] MEDS: dilTIAZem CD 120 MG CAP PO SCH (09:14)
[2023-02-09] MEDS: Apixaban 5 MG TAB PO SCH ×2 (09:14→22:07)
[2023-02-09] MEDS: Losartan 25 MG TAB PO SCH (09:14)
[2023-02-09] MEDS: Amiodarone 200 MG TAB PO SCH ×2 (09:14→22:08)
[2023-02-09] MEDS: Digoxin 0.125 MG TAB PO SCH (09:15)
[2023-02-09] MEDS: Ascorbic Acid 500 mg Chewable Tablet PO SCH (09:15)
[2023-02-09] MEDS: Metoprolol Tartrate 50 MG TAB PO SCH ×2 (09:15→22:08)
[2023-02-09] MEDS: Zinc Sulfate 220 MG CAP PO SCH (09:15)
[2023-02-09] MEDS: Saccharomyces boulardii 250 MG CAP PO SCH (09:16)
[2023-02-09] MEDS: Cholecalciferol (Vitamin D3) 400 UNITS TAB PO SCH (09:16)
[2023-02-09] MEDS: Famotidine 20 MG TAB PO SCH ×2 (09:16→22:07)
[2023-02-09] MEDS: Hydrocortisone Sod Succ/PF 100 mg/2 ml Vial IVP SCH (09:17)
[2023-02-09] MEDS: Magnesium Oxide 400 MG TAB PO SCH (09:21)
[2023-02-09 09:43] VITALS: BMI 25.0
[2023-02-09] MEDS: Acetaminophen 325 MG TAB PO PRN (19:00)
[2023-02-10] MEDS: Benzonatate 100 MG CAP PO PRN (04:12)
[2023-02-10] MEDS: Acetaminophen 325 MG TAB PO PRN (04:12)
[2023-02-10 06:23] LABS: #Basophils 0.1 10x3/uL (0.0-0.2); #Eosinphils 0.3 10x3/uL (0.0-0.5); #Monocytes 1.1 10x3/uL (0.0-1.1); #Neutrophils 5.8 10x3/uL (1.5-8.4); %Basophils 0.5 % (0.0-2.0); %Eosinophils 2.9 % (0.0-6.0); %Lymphocytes 32.1 % (18.0-47.0); %Monocytes 9.7 % (0.0-10.0); %Neutrophils 52.9 % (40.0-75.0); Hematocrit 36.8 % (34.9-44.5); Hemoglobin 12.4 g/dL (12.0-15.5); Mean Corpuscular HGB CONC 33.7 g/dL (32.0-36.0); Mean Corpuscular Hemoglobin 30.5 pg (27.0-33.0); Mean Corpuscular Volume 90.4 fl (81.6-98.3); Mean Platelet Volume 10.9 fl (7.4-10.4); Platelet Count 299 10x3/uL (150-450); RBC Distribution Width 13.1 % (11.5-14.5); Red Blood Cell (RBC) Count 4.07 10x6/uL (3.90-5.03); White Blood Cell (WBC) Count 11.1 10x3/uL (3.5-10.5)
[2023-02-10 06:39] LABS: ALT (SGPT) 37 U/L (8-55); AST (SGOT) 21 U/L (5-34); Albumin 2.9 g/dL (3.4-4.8); Alkaline Phosphatase 35 U/L (40-110); Anion Gap 12 mmol/L (10-20); BUN (Urea Nitrogen) 16 mg/dL (9.8-20.1); Bilirubin, Total 0.3 mg/dL (0.2-1.2); Calc. Creatinine Clearance 91 mL/min (70-130); Calcium 8.1 mg/dL (7.8-10.44); Carbon Dioxide 24 mmol/L (23-31); Chloride 108 mmol/L (98-107); Estimated GFR 93; Globulin 2.4 g/dL (2.4-3.5); Glucose 87 mg/dL (83-110); Potassium 3.5 mmol/L (3.5-5.1); Protein, Total 5.3 g/dL (5.8-8.1); Sodium 140 mmol/L (136-145)
[2023-02-10] MEDS ORDERED: Potassium Chloride 20 MEQ TAB PO SCH ×2 (07:00→09:00)
[2023-02-10] MEDS ORDERED: Losartan 50 MG TAB PO SCH (09:00)
[2023-02-10] MEDS: Apixaban 5 MG TAB PO SCH (09:37)
[2023-02-10] MEDS: Zinc Sulfate 220 MG CAP PO SCH (09:37)
[2023-02-10] MEDS: dilTIAZem CD 120 MG CAP PO SCH (09:37)
[2023-02-10] MEDS: Ascorbic Acid 500 mg Chewable Tablet PO SCH (09:37)
[2023-02-10] MEDS: Metoprolol Tartrate 50 MG TAB PO SCH (09:37)
[2023-02-10] MEDS: Cholecalciferol (Vitamin D3) 400 UNITS TAB PO SCH (09:37)
[2023-02-10] MEDS: Hydrocortisone Sod Succ/PF 100 mg/2 ml Vial IVP SCH (09:37)
[2023-02-10] MEDS: Saccharomyces boulardii 250 MG CAP PO SCH (09:37)
[2023-02-10] MEDS: Amiodarone 200 MG TAB PO SCH (09:37)
[2023-02-10] MEDS: Digoxin 0.125 MG TAB PO SCH (09:37)
[2023-02-10] MEDS: Magnesium Oxide 400 MG TAB PO SCH (09:37)
[2023-02-10] MEDS: Famotidine 20 MG TAB PO SCH (09:38)
[2023-02-10 13:15] VITALS: BP 147/78; TEMP 98.9
== END 2023-02-10 12:55 | disposition home or self-care (01) | DRG 177 ==
LOC: CSHERS 15:16 → CSHICU 15:56 → CSHTELE 02-07 15:47
PROVIDERS: ADMIT Emergency Medicine; ATTEND Family Medicine
PROC: XW033E5 Introduction of Remdesivir Anti-infective into Peripheral Vein, Percutaneous Approach, New Technology Group 5 (ICD-10-PCS; principal; 2023-02-04)
PROC: 8E0ZXY6 Isolation (ICD-10-PCS; 2023-02-04)
PROC: 3E0333Z Introduction of Anti-inflammatory into Peripheral Vein, Percutaneous Approach (ICD-10-PCS; 2023-02-05)
DX: U07.1 COVID-19 (principal); J12.82 Pneumonia due to coronavirus disease 2019; J96.01 Acute respiratory failure with hypoxia; E27.1 Primary adrenocortical insufficiency; I47.10 Supraventricular tachycardia, unspecified; I48.19 Other persistent atrial fibrillation; E87.6 Hypokalemia; E83.42 Hypomagnesemia; E03.9 Hypothyroidism, unspecified; Z90.49 Acquired absence of other specified parts of digestive tract; Z90.710 Acquired absence of both cervix and uterus; Z88.5 Allergy status to narcotic agent; Z79.899 Other long term (current) drug therapy; Z11.52 Encounter for screening for COVID-19; Z91.199 Patient's noncompliance with other medical treatment and regimen due to unspecified reason; Z88.0 Allergy status to penicillin
CPT/HCPCS: 36415; 36416; 71045; 80053; 80076; 80162; 82728; 82805; 83605; 83735; 84100; 84145; 84439; 84443; 84481; 85025; 86140; 87040; 87324; 87449; 87899; 93005; 93010; 93306; 94760; 96374; 96375; J0248; J0283; J0692; J1160; J1720; J2405; J3475; J3480; J3490; J7050; S0028

== ENCOUNTER 2023-12-08 10:53 | Outpatient (CLI) | payer MEDICARE ==
[~2023-12-08 10:53] MED LIST: Iopamidol 370 76% 100 ML VIAL ONE
== END 2023-12-08 10:54 | disposition home or self-care (01) ==
LOC: CSHCT 10:53
PROVIDERS: ATTEND Internal Medicine Critical Care Medicine
DX: R59.0 Localized enlarged lymph nodes (principal)
CPT/HCPCS: 36415; 71260; 82565

== ENCOUNTER 2024-03-18 11:41 | Inpatient (IN) | payer BC, MEDICARE ==
[2024-03-18 12:16] LABS: #Basophils 0.04 10x3/uL (0.0-0.2); #Eosinophils 0.08 10x3/uL (0.0-0.5); #Monocytes 1.42 10x3/uL (0.0-1.1); #Neutrophils 7.99 10x3/uL (1.5-8.4); %Basophils 0.3 % (0.0-2.0); %Eosinophils 0.6 % (0.0-6.0); %Lymphocytes 24.7 % (18.0-47.0); %Monocytes 11.1 % (0.0-10.0); %Neutrophils 62.8 % (40.0-75.0); Hematocrit 39.4 % (34.9-44.5); Hemoglobin 12.8 g/dL (12.0-15.5); Mean Corpuscular HGB CONC 32.5 g/dL (32.0-36.0); Mean Corpuscular Hemoglobin 30.3 pg (27.0-33.0); Mean Corpuscular Volume 93.1 fL (81.6-98.3); Mean Platelet Volume 11.1 fL (7.4-10.4); Platelet Count 213 10x3/uL (150-450); RBC Distribution Width 13.7 % (11.5-14.5); Red Blood Cell (RBC) Count 4.23 10x6/uL (3.90-5.03); White Blood Cell (WBC) Count 12.75 10x3/uL (3.5-10.5)
[2024-03-18] MEDS ORDERED: Ondansetron PF 4 MG/2 ML Vial ONE (12:22)
[2024-03-18] MEDS ORDERED: Ketorolac Tromethamine 30 MG (1 mL) VIAL ONE (12:22)
[2024-03-18 12:30] LABS: ALT (SGPT) 17 U/L (Less than 34); AST (SGOT) 31 U/L (11-34); Albumin 3.7 g/dL (3.1-4.5); Alkaline Phosphatase 42 U/L (40-110); Anion Gap 14 mmol/L (10-20); BUN (Urea Nitrogen) 13 mg/dL (9.8-20.1); Bilirubin, Total 0.4 mg/dL (0.3-1.2); Calc. Creatinine Clearance 0 mL/min (70-130); Calcium 8.3 mg/dL (7.8-10.44); Carbon Dioxide 21 mmol/L (23-31); Chloride 108 mmol/L (98-107); Estimated GFR 69; Globulin 3.3 g/dL (2.4-3.5); Glucose 98 mg/dL (83-110); Potassium 3.1 mmol/L (3.5-5.1); Sodium 140 mmol/L (136-145)
[2024-03-18] MEDS ORDERED: Ipratropium/Albuterol 3 ML NEB ONE (12:42)
[2024-03-18] MEDS ORDERED: Iopamidol 370 76% 100 ML VIAL ONE (13:20)
[2024-03-18 13:22] LABS: Actual Bicarbonate (HCO3v) 19.8 mEq/L (22-28); Analyzer IN Cardio CS ER; Base Excess -4.6 mEq/L (-2 - +2); Chloride (VBG) 102 mmol/L (98-106); Hematocrit-VBG 38 % (36.0-47.0); Puncture Site Other Site; RapidComm Collect By RN; Sodium 139 mmol/L (133-146); pH (venous) 7.377 (7.32-7.43)
[2024-03-18 13:25] LABS: Troponin I 0.067 ng/mL (< 0.028)
[2024-03-18] MEDS ORDERED: Potassium Chloride 20 MEQ TAB ONE (14:21)
[2024-03-18 14:46] LABS: Bilirubin Neg (Negative); Blood, Urine 25 (Negative); Clarity Clear (Clear); Glucose, Urine (Dipstick) Normal (Negative); Ketone, Urine Negative (Negative); Leukocyte Negative (Negative); Nitrite Negative (Negative); Protein, Urine (Dipstick) Negative (Neg-Trace); Urobilinogen Normal mg/dL (Less than 2)
[2024-03-18 14:58] LABS: Bacteria/HPF Rare-Few HPF (None Seen); CAUTI Indications for Culture Pelvic or flank pain; RBC/HPF 0-3 HPF (0-3); Squamous Epithelial 0-3 HPF (0-3); WBC/HPF None Seen HPF (0-3)
[2024-03-18 14:59] LABS: Urine Culture Reflex No No
[2024-03-18 15:33] LABS: Troponin I 0.123 ng/mL (< 0.028)
[2024-03-18] MEDS ORDERED: Furosemide 40 MG (4 mL) VIAL ONE (16:17)
[2024-03-18] MEDS ORDERED: Acetaminophen 325 MG Suppository ONE (16:54)
[2024-03-18] MEDS ORDERED: Acetaminophen 650 MG Suppository ONE (16:55)
[2024-03-18] MEDS ORDERED: dilTIAZem 25 MG/5 ML VIAL ONE (17:08)
[2024-03-18] MEDS ORDERED: Electrolyte Replacement Protocol 1 EACH FS SCH (19:00)
[2024-03-18 21:06] VITALS: BMI 28.5
[2024-03-18] MEDS: Apixaban 5 MG TAB PO SCH (21:11)
[2024-03-18] MEDS: Acetaminophen 325 MG TAB PO PRN (21:11)
[2024-03-18] MEDS: Hydrocortisone Sod Succ/PF 100 mg/2 ml Vial IVP SCH (21:14)
[2024-03-18] MEDS: Oseltamivir 75 MG CAP PO SCH (21:14)
[2024-03-18] MEDS: Metoprolol Tartrate 5 MG (5 mL) VIAL IVP PRN (21:20)
[2024-03-18 21:37] LABS: Potassium 3.6 mmol/L (3.5-5.1)
[2024-03-19 00:59] LABS: Magnesium 1.6 mg/dL (1.6-2.6)
[2024-03-19] MEDS: Magnesium Sulfate/D5W 1 GM in Premix 1 BAG IVPB SCH ×2 (01:19→02:38)
[2024-03-19] MEDS: Potassium Chloride 20 MEQ in Premix 1 BAG IVPB SCH (01:19)
[2024-03-19] MEDS: Hydrocortisone Sod Succ/PF 100 mg/2 ml Vial IVP SCH (01:20)
[2024-03-19] MEDS: Sodium Chloride 0.9% 500 ML IV SCH (01:21)
[2024-03-19] MEDS: Potassium Chloride 20 MEQ TAB PO SCH (01:45)
[2024-03-19 04:07] LABS: Digoxin Less than 0.19 ng/mL (0.8-2.0)
[2024-03-19 04:26] LABS: #Basophils 0.03 10x3/uL (0.0-0.2); #Eosinophils 0.03 10x3/uL (0.0-0.5); #Monocytes 0.63 10x3/uL (0.0-1.1); %Basophils 0.2 % (0.0-2.0); %Eosinophils 0.2 % (0.0-6.0); %Lymphocytes 9.9 % (18.0-47.0); %Monocytes 3.9 % (0.0-10.0); %Neutrophils 85.2 % (40.0-75.0); Hematocrit 36.8 % (34.9-44.5); Hemoglobin 11.9 g/dL (12.0-15.5); Mean Corpuscular HGB CONC 32.3 g/dL (32.0-36.0); Mean Corpuscular Hemoglobin 30.4 pg (27.0-33.0); Mean Corpuscular Volume 93.9 fL (81.6-98.3); Mean Platelet Volume 10.7 fL (7.4-10.4); Platelet Count 191 10x3/uL (150-450); RBC Distribution Width 13.9 % (11.5-14.5); Red Blood Cell (RBC) Count 3.92 10x6/uL (3.90-5.03); White Blood Cell (WBC) Count 16.29 10x3/uL (3.5-10.5)
[2024-03-19 04:51] LABS: ALT (SGPT) 19 U/L (Less than 34); AST (SGOT) 27 U/L (11-34); Albumin 3.1 g/dL (3.1-4.5); Alkaline Phosphatase 38 U/L (40-110); Anion Gap 14 mmol/L (10-20); BUN (Urea Nitrogen) 14 mg/dL (9.8-20.1); Bilirubin, Total 0.5 mg/dL (0.3-1.2); Calc. Creatinine Clearance 53 mL/min (70-130); Carbon Dioxide 19 mmol/L (23-31); Chloride 109 mmol/L (98-107); Estimated GFR 57; Globulin 2.7 g/dL (2.4-3.5); Glucose 161 mg/dL (83-110); Magnesium 2.6 mg/dL (1.6-2.6); Potassium 4.2 mmol/L (3.5-5.1); Protein, Total 5.8 g/dL (5.8-8.1); Sodium 138 mmol/L (136-145)
[2024-03-19] MEDS: Lactated Ringer's 500 ML IV SCH (04:54)
[2024-03-19] MEDS: Furosemide 100 MG (10 mL) VIAL SLOW IVP SCH ×2 (07:28→14:33)
[2024-03-19] MEDS: Melatonin 3 MG TAB PO SCH (23:29)
[2024-03-20 04:01] LABS: #Basophils 0.03 10x3/uL (0.0-0.2); #Eosinophils Less than 0.03 10x3/uL (0.0-0.5); #Monocytes 0.99 10x3/uL (0.0-1.1); #Neutrophils 14.38 10x3/uL (1.5-8.4); %Basophils 0.2 % (0.0-2.0); %Lymphocytes 12.1 % (18.0-47.0); %Monocytes 5.6 % (0.0-10.0); %Neutrophils 81.6 % (40.0-75.0); Hematocrit 34.5 % (34.9-44.5); Hemoglobin 11.5 g/dL (12.0-15.5); Mean Corpuscular HGB CONC 33.3 g/dL (32.0-36.0); Mean Corpuscular Hemoglobin 31.1 pg (27.0-33.0); Mean Corpuscular Volume 93.2 fL (81.6-98.3); Mean Platelet Volume 11.5 fL (7.4-10.4); Platelet Count 208 10x3/uL (150-450); RBC Distribution Width 13.8 % (11.5-14.5); White Blood Cell (WBC) Count 17.63 10x3/uL (3.5-10.5)
[2024-03-20 04:18] LABS: Anion Gap 15 mmol/L (10-20); BUN (Urea Nitrogen) 18 mg/dL (9.8-20.1); Calc. Creatinine Clearance 78 mL/min (70-130); Calcium 8.9 mg/dL (7.8-10.44); Carbon Dioxide 21 mmol/L (23-31); Chloride 109 mmol/L (98-107); Estimated GFR 89; Glucose 131 mg/dL (83-110); Magnesium 2.3 mg/dL (1.6-2.6); Potassium 3.7 mmol/L (3.5-5.1); Sodium 141 mmol/L (136-145)
[2024-03-20] MEDS: Furosemide 40 MG (4 mL) VIAL SLOW IVP SCH (06:55)
[2024-03-20 08:47] VITALS: BP 109/63; TEMP 98.2
[2024-03-20] MEDS: Amiodarone 200 MG TAB PO SCH (09:37)
[2024-03-21] MEDS ORDERED: Furosemide 20 MG TAB PO SCH (09:00)
== END 2024-03-20 12:27 | disposition home or self-care (01) | DRG 152 ==
LOC: CSHERS 11:41 → CSHERHOLD 15:50 → CSHTELE 20:58
PROVIDERS: ADMIT Internal Medicine; ATTEND Family Medicine
DX: J11.1 Influenza due to unidentified influenza virus with other respiratory manifestations (principal); I21.A1 Myocardial infarction type 2; I50.33 Acute on chronic diastolic (congestive) heart failure; E27.1 Primary adrenocortical insufficiency; I11.0 Hypertensive heart disease with heart failure; E87.6 Hypokalemia; I48.0 Paroxysmal atrial fibrillation; E03.9 Hypothyroidism, unspecified; I48.91 Unspecified atrial fibrillation; Z88.8 Allergy status to other drugs, medicaments and biological substances; Z79.01 Long term (current) use of anticoagulants; Z88.0 Allergy status to penicillin; Z90.49 Acquired absence of other specified parts of digestive tract; Z79.890 Hormone replacement therapy
CPT/HCPCS: 36415; 71045; 71275; 80048; 80053; 80162; 81001; 82805; 83605; 83735; 83880; 84145; 84484; 85025; 87040; 87086; 87428; 93005; 93010; 94640; 94760; 96361; 96374; 96375; J1720; J1885; J1940; J2405; J3475; J3480; J7030; J7120; J7620; Q9967

== ENCOUNTER 2024-12-07 14:23 | Outpatient (CLI) | payer MEDICARE | END 2024-12-07 14:24 | disposition home or self-care (01) | LOC: CSHMRI 14:23 | PROVIDERS: ATTEND Orthopaedic Surgery | DX: M25.562 Pain in left knee (principal); M94.8X8 Other specified disorders of cartilage, other site ==